=== PATIENT | female | born 1985 | race Caucasian/White ===

== ENCOUNTER 2019-09-05 00:50 | Inpatient (IN) | payer OTHER, SELFPAY ==
[2019-09-05] VITALS (13 sets, daily range): BP systolic 95–124; BP diastolic 60–80; PULSE 54–84; RESP 16; TEMP 36.4–36.8; O2SAT 99; BMI 27.5
[2019-09-05] MEDS: ONDANSETRON INJ 4 MG/2 ML VIAL IV PUSH (01:37)
[2019-09-05 01:51] LABS: Basophils Percent Auto 0.3 % (0.2-1.2); Eosinophils Absolute Auto 0.1 K/mm3 (0-0.3); Eosinophils Percent Auto 0.5 % (0-4.4); Hematocrit 35.6 % (37.0-47.0); Hemoglobin 11.5 g/dL (12.0-15.0); Immature Granulocyte Absolute 0.07 K/mm3 (0.00-0.031); Immature Granulocyte Percent A 0.6 % (0-0.5); Lymphocytes Absolute Auto 2.92 K/mm3 (0.9-3.2); Lymphocytes Percent Auto 23.3 % (18.3-44.2); Mean Corpuscular HGB Conc 32.3 g/dl (32-36); Mean Corpuscular Hemoglobin 27.4 pg (26-34); Mean Platelet Volume 11.8 fl (7.4-10.4); Monocytes Absolute Auto 0.9 K/mm3 (0.1-0.6); Monocytes Percent Auto 7.1 % (2.6-8.5); Neutrophils Absolute Auto 8.5 K/mm3 (1.3-6.7); Neutrophils Percent Auto 68.2 % (45.5-73.1); Platelet Count Result 267 k/mm3 (150-375); Red Blood Count 4.19 M/mm3 (4.2-5.4); Red Cell Distribution Width 13.2 % (11.5-14.5); White Blood Count 12.5 K/mm3 (4.5-10.0)
[2019-09-05] MEDS: OXYTOCIN 30 UNITS/NS 500 ML 30 UNITS/500 ML BAG 999 UNITS IV CONT (01:57)
--- NOTE | 2019-09-05 02:03 | P.HP_ITS ---
Obstetrics - Admit Note Admission Note: record reviewed. No pertinent additions to the history and/or any subsequent changes in the physical findings that are not consistent with the expected course of the were found.No physical prior to delivery, unknown GBS. Pt has been in halfway and recieving care, before and a fter has been seen at [facility]. Pt denies any medications, surgeries, prior at time of admission arrrived 6 cm intact, upon arrival sve 9/100/-2 AROM clear fluid, odorless Additions to the history and/or subsequent changes in the physical findings follow. None.
--- NOTE | 2019-09-05 02:05 | P.PCNOB_ITS ---
OB - Delivery Note Procedure Delivery date: 09/05/19 Procedure: vaginal delivery Intrapartal events: Ineffective Pushing Delivery augmentation: rupture of membranes Delivery monitor: external FHT and external uterine Route of delivery: Laceration description: Labial (right no repair) Specimen: Yes Estimated blood loss (mL): 55 Anesthesia type: None Disposition: other () [place] Baby Date of : 09/05/19 Time of : 01:52 Weeks of gestation at delivery: 39 gender: Female Weight (pounds): 7 Weight (ounces): 1 presentation: vertex position: Left Occiput Anterior Placenta delivery description: Spontaneous cord vessel description: 3 Vessels and Clamped/Cut score one minute: 9 score five minutes: 9 Narrative: mother and baby in stable condition
[2019-09-05] MEDS: OXYTOCIN 30 UNITS/NS 500 ML 30 UNITS/500 ML BAG 125 UNITS IV CONT (02:29)
[2019-09-05 02:43] LABS: HIV 1/2 Ab P24 Ag Result Negative (Negative)
[2019-09-05] MEDS: IBUPROFEN 600 MG TABLET PO ×3 (02:43→20:00)
--- NOTE | 2019-09-05 03:09 | LDADM ---
This patient, Cathy Gordon, was admitted to Labor/Delivery/Recovery 105 on 09/05/19 at 00:50. Plans for labor, pain management and were discussed with patient. Patient/family oriented to hospital policies and general routines including ID bracelet, bed and alarms, visiting hours, pain management, procedures, bathroom and other care routines, personal items, smoking policy, room service/diet and guest tray routines, security routines, and visiting hours. Patient/Family are encouraged to report perceived risks to care and to ask questions if they do not understand what they are told or what they should do. See OBIX for further documentation.
[2019-09-05] MEDS: WITCH HAZEL 40 PADS 1 PAD TOPICAL (03:29)
[2019-09-05] MEDS: BENZOCAINE 20% AER SPR (*SP) 56 GM CAN 1 SPRAY TOPICAL (03:29)
--- NOTE | 2019-09-05 03:45 | PC.NURSE ---
tee moran. cnm stated that cnkj was unable to order pt buprenorphine and dr garcia would have to order medication in am
[2019-09-05 08:19] LABS: HIV 1/2 Ab P24 Ag Result Negative (Negative)
--- NOTE | 2019-09-05 09:56 | PC.NURSE ---
Spoke with Trina in C. Coordination regarding pt's desire to give baby up for adoption. Gave Trina report of pt's hx.
--- NOTE | 2019-09-05 10:11 | PC.NURSE ---
After talking with pt. regarding her dosage of subetex she states she takes 4 mg BID of sublingual pills. Informed pt that our in-house pharmacy does not carry that particular medication (per conversation with pharmacist this AM). I asked pt if she can bring in her home supply of medication. She states she needs to call her regular OB for a refill and then she will check to see if a family member can bring it in.
[2019-09-05 11:25] LABS: Rapid Plasma Reagin Non-Reactive (NonReactive)
--- NOTE | 2019-09-05 16:37 | PCCCNOTE ---
Care Coordination. Pt. referred to for history of drug use, no custody of older 2 children, and wanting adoption of this infant. Spoke with pt. via phone. She reports her father has custody of her older children. She is currently living with [facility], but they are not together and living situation likely temporary as she just got out of [facility]. She was going through drug court and offered a plea to go to [facility] for 90 days and then be on parole. Pt. reports she was in [facility] June and July. She denies meth use for awhile as this is her drug of choice, but admits to marijuana use. RN reports pt. had limited care, but records show a positive ampetamine in Apr 2019. I provided adoption agency options. She wanted to work with [facility]. I spoke with Korina Olsen at [place] ([phone]). She is working with pt. and will talk tonight about consents if pt. ready to move forward. Pt. will also need to sign hospital release of infant form before discharge as well. Korina aware if all goes as planned, infant should be ready for discharge Monday. Spoke with Aliza Steele at [facility] Hotline regarding pt. and she took situation as a report (Intake ID#[id number]). Spoke with Jackeline Mills at [facility] [place] office ([phone] cell or [phone] office) and he reports [facility] will allow adoption if pt. proceeds with it, but if pt. wants to take home then [facility] will NOT allow this and infant will be taken into protective care. Awaiting mother's decision. RNMegan, aware of above. Will follow.
--- NOTE | 2019-09-05 18:05 | PC.NURSE ---
Informed pt this AM that I need to collect a urine specimen to call me when she urinates in the hat on the toilet. This AM at approx. 1000 pt states she urinated but her gown dropped into the urine hat and she dumped the urine. At 1700, checked the pt's toilet for urine since she has not called for a specimen check and I found the urine hat in the trash can. Thus, Urine specimen not collected.
[2019-09-06 05:43] LABS: Hematocrit 28.5 % (37.0-47.0)
--- NOTE | 2019-09-06 07:33 | PM.OBPNVD ---
OB - PN: Subj Subjective Date/time seen: 09/06/19 07:33 OB - PN: Obj Data Labs CBC & Chem 7: 09/06/19 05:36 Labs: Laboratory Results - last 24 hr 09/05/19 09/05/19 09/05/19 01:14 01:14 07:13 Hgb Hct RPR Non-reactive HIV 1&2 Ab/P24 Ag 4thGn Negative Antigen Identification Cancelled 09/06/19 05:36 Hgb 9.0 L Hct 28.5 L RPR HIV 1&2 Ab/P24 Ag 4thGn Antigen Identification OB - PN A/P Plan day: 1 Plan: routine care Comments: hx of drug use, recent incarceration on droplet precaution, plans on adoption, DCFS involved Time Spent With Patient Time: Total time spent is greater than 50% in coordination of care (as documented) at patient's floor/unit and/or counseling patient: Review of Systems Review of Systems: All systems reviewed & are unremarkable except as noted in HPI and below Constitutional: Constitutional: Reports as per HPI Exam Const: General: comfortable Resp: Effort & Inspection: normal respiratory effort
[2019-09-06 08:15] VITALS: BP 115/78; PULSE 60; RESP 18; TEMP 37; O2SAT 99
[2019-09-06] MEDS: KETOROLAC 10 MG TABLET PO ×3 (08:23→22:06)
[2019-09-06] MEDS: POLYSACCHARIDE IRON COMPLEX 150 MG CAPSULE PO ×2 (08:23→16:06)
[2019-09-06] MEDS: DOCUSATE SODIUM 100 MG CAPSULE PO ×2 (08:23→16:06)
--- NOTE | 2019-09-06 10:06 | PCCCNOTE ---
Addendum entered by VANDA Mitchell 09/06/19 10:11: Korina at [facility] is aware as well. Original Note: SW Note. Spoke with pt. by phone this morning. She reports that she is no longer interested in adoption and she wants to keep her baby. Informed her that [facility] plans to take protective custody of baby. Pt. reports that she understands and directed me to tell DCFS of her change in plan. Spoke with Geo Mills at [facility]. He is aware and reports that they will take protective custody. He is aware that baby will likely be ready for discharge tomorrow. He is working on placement and will call when arrangements are made. MARCIE Guzman updated.
--- NOTE | 2019-09-06 10:35 | PC.NURSE ---
Addendum entered by Megan Dover RN 09/06/19 10:37: This communication occurred at approx. 0900 via face to face interaction. Original Note: Informed Ghada Lemus CNM of pt's refusal/aversion to provide a urine specimen, also informed her of supervisor dry paste not ordering a meconium drug screen or UDS on baby.
[2019-09-06 13:23] LABS: SARS-CoV-2 RNA PCR Negative
--- NOTE | 2019-09-06 14:40 | PC.NURSE ---
Pt's covid test is negative. Droplet isolation d/c'd and pt informed.
--- NOTE | 2019-09-06 16:15 | PCCCNOTE ---
SW Note. Received call from Geo Mills at [facility]. He asked if baby could be held at hospital until Monday in order for them to arrange placement. Geo informed that it is anticipated that baby will be ready for discharge on Monday and should be placed on Monday. Geo reports that wagon washerorder desk caller will need to be contacted through the hotline on day of discharge and they will arrange placement. Encouraged Geo to arrange placement today in anticipation of discharge tomorrow, but he reports that it is not possible for him to have placement arranged by end of business today.
[2019-09-06 18:57] VITALS: BP 122/79; PULSE 55; RESP 16; TEMP 36.9; O2SAT 100
[2019-09-07] MEDS: KETOROLAC 10 MG TABLET PO ×2 (05:17→11:14)
[2019-09-07] MEDS: DOCUSATE SODIUM 100 MG CAPSULE PO (09:57)
[2019-09-07 09:58] VITALS: BP 109/61; PULSE 58; RESP 16; TEMP 36.6; O2SAT 100
[2019-09-07] MEDS: POLYSACCHARIDE IRON COMPLEX 150 MG CAPSULE PO (09:58)
--- NOTE | 2019-09-07 10:14 | PM.OBPNVD ---
OB - PN: Subj Subjective Date/time seen: 09/07/19 10:14 Patient comments: no complaints, pain well controlled and other (Lochia similar to menses) [place] baby status: doing well OB - PN: Obj Data Labs CBC & Chem 7: 09/06/19 05:36 Labs: Laboratory Results - last 24 hr 09/05/19 19:43 SARS-CoV-2 RNA (RT-PCR) Negative OB - PN A/P Plan day: 2 (s/p vaginal delivery, doing well) Plan: routine care, discharge home and other (Follow up in office in 4 weeks) Time Spent With Patient Time: Total time spent is greater than 50% in coordination of care (as documented) at patient's floor/unit and/or counseling patient: Exam Const: General: no acute distress GI: Inspection: other (Fundus firm and nontender below umbilicus) GI Palp: Yes Soft to palpation and No Tenderness to palpation present (GI) Extrem: General: no edema
[2019-09-07] MEDS: medroxyPROGESTERone ACETATE IM 150 MG/ML SYR IM (11:15)
--- NOTE | 2019-09-07 14:34 | PC.NURSE ---
1200 Daphnie Bowman, Foster Care Phlebotomist Associate here. 1220 Neeraj Trujillo DCFS Phlebotomist Associate here. 1222 DCFS took custody of infant.
--- NOTE | 2019-09-07 16:16 | PCCCNOTE ---
Care Coordination. Pt. and baby to discharge today. Spoke with [facility] Hotline Linda (Intake ID#[id number]). Spoke with on-call DCFS worker Neeraj Caldwell and he reports they will be picking up baby around 12p. He will have rn case management with him. RN, Xochitl, renita.
--- NOTE | 2019-09-13 07:48 | PM.OBDSVD ---
DS: Diagnosis Admitting Diagnosis Admitting Diagnosis: Encounter for supervision of normal , unspecified, third trimester OB - DS: Summary OB Procedures : None OB Procedures Intrapartum: Spontaneous Vag Delivery OB Procedures: : None Time Spent with Patient Time attestation: Total time spent providing and/or coordinating discharge services: DS: Data Data Completed and Pending Completed studies during hospitalization: Pending at discharge 09/05/19 02:29 Surgical [PTH] Routine Discharge Plan Discharge Consulting providers: Eufemia Lemus Discharging Clinician: Lizeth Manzanares Patient Disposition: Home, Self-Care Activity: as tolerated Diet: as tolerated Discharge Instructions: Education: Mom and Baby Guide Given to: Patient Follow-Up: Call your delivering provider's office for an appointment to be seen in: 4 Weeks Mom should come to the [facility] for the follow-up appointment. Appointment Date/Time: September 10, 2019 at 11:00 am What to expect at your follow-up visit: Blood Pressure Check Physical Assessment Call [phone] if you are unable to keep your appointment time. BREAST CARE: 1. Wear a snug supportive bra. 2. For engorgement discomfort: Bottle Feeding: A. May apply ice packs EPISIOTOMY/PERINEAL CARE: 1. Until bleeding stops, use your deepika bottle after urinating 2. Change your pad frequently throughout the day 3. You may take sitz baths several times a day (fill your bathtub with warm water and soak for 20 minutes.) Do NOT bathe in the water 4. No tub baths until seen by your physician - You may shower ACTIVITY: 1. Rest as much as possible. 2. Do not exercise or lift anything heavier than your baby (such as laundry or other children.) 3. Avoid stairs or driving as much as possible. 4. Do not put anything into the vagina. No douching, tampons, or sexual activity until seen by physician. NOTIFY PHYSICIAN IF YOU HAVE ANY QUESTIONS OR IF ANY OF THE FOLLOWING SYMPTOMS OCCUR: 1. If your episiotomy or incision becomes red, swollen, or more painful than what you have experienced in the hospital. 2. If your vaginal bleeding becomes foul smelling. 3. If your vaginal bleeding becomes more heavy than a period or if your bleeding changes from pink to bright red. However, you may pass an occasional walnut-sized clot once or twice for the first week . 4. If you experience a sharp, shooting pain in you calves. 5. If you discover a hard, reddened area on your breast or if you experience flu-like symptoms. DIET: 1. Eat regular, well-balanced meals. 2. Drink plenty of fluids daily. If , drink to thirst. Follow-up/Referrals: Eufemia Lemus CNM [Certified Nurse Marine Fuel Dock Attendant] - Discharge Medications: New ibuprofen 600 mg Tablet 600 mg PO Q6H PRN (Reason: Cramping) Qty: 60 RF: 0 Continued prednisone 50 mg tablet RF: 0 buprenorphine HCl 2 mg Tablet, Sublingual 2 mg SUBLINGUAL DAILY RF: 0 PNV cmb#[id number]-ferrous fumarate-FA [] 28 mg iron- 800 mcg Tablet 1 tablet PO DAILY RF: 0 Discontinued acetaminophen 500 mg tablet RF: 0 diphenhydramine HCl [Banophen] 25 mg capsule RF: 0 Date of admission: 09/05/19 00:50 Primary Care Provider: UNKNOWN,DOCTOR Admitting Provider: Paultete Peters Discharge Date/Time: 09/07/19 12:22 Attending physician on admission: Lizeth Manzanares
== END 2019-09-07 12:22 | disposition home or self-care (01) | DRG 560 ==
LOC: ANHLDR 03:12 → ANHOB2 09-06 09:34 → ANHLDR 09-10 08:31 → ANHOB2 09-10 08:31
PROVIDERS: Advanced Practice Midwife; Admitting Provider Obstetrics & Gynecology; Visit Provider Obstetrics & Gynecology
DX: O70.0 First degree perineal laceration during delivery (principal); Z3A.39 39 weeks gestation of pregnancy; Z37.0 Single live birth; Z23 Encounter for immunization; Z20.828 Contact with and (suspected) exposure to other viral communicable diseases
CPT/HCPCS: 36415; 85014; 85018; 85025; 86592; 86703; 86850; 86880; 86900; 86901; 86902; 87635; 88307; A9270; G0432; J1050; J2405; J2590; U0003

== ENCOUNTER 2021-04-18 15:54 | Emergency (ER) | payer OTHER, SELFPAY ==
--- NOTE | ~2021-04-18 | CT_ITS ---
EXAMINATION: CT abdomen pelvis w con DATE: 04/18/2021 18:36 INDICATION: Suprapubic pain. TECHNIQUE: Computed tomography (CT) of the abdomen and pelvis was performed with 100 mL Omnipaque 350 intravenous contrast. Automated exposure control and iterative reconstruction technique were employe d. The dose-length product was 191.53 mGy-cm. COMPARISON: None. FINDINGS: The visualized portions of the lung bases are clear without pneumonia or pleural effusion. The heart size is normal. No pericardial effusion. The liver, gallbladder, spleen, pancreas, and adre nal glands are normal. There is cortical thinning of the kidneys. There are no dilated loops of bowel . The appendix is normal. There are no pathologically enlarged lymph nodes. There is physiologic flui d in the pelvis. Left ovarian vein and the periuterine veins are enlarged, consistent with pelvic javy ous insufficiency. There is severe degenerative disc disease at L5-S1. IMPRESSION: 1. Pelvic venous insufficiency. Reviewed, dictated and finalized at location A. UNITY SERVICE REPRESENTATIVE
[2021-04-18 16:02] VITALS: BP 106/74; PULSE 109; RESP 18; TEMP 36.6; O2SAT 100
[2021-04-18] MEDS: KETOROLAC 30 MG/ML VIAL (*BKC) IV PUSH (16:37)
[2021-04-18 16:38] LABS: Basophils Percent Auto 0.5 % (0.2-1.2); Eosinophils Absolute Auto 0.1 K/mm3 (0-0.3); Eosinophils Percent Auto 1.1 % (0-4.4); Hematocrit 39.8 % (37.0-47.0); Hemoglobin 12.9 g/dL (12.0-15.0); Immature Granulocyte Absolute 0.03 K/mm3 (0.00-0.031); Immature Granulocyte Percent A 0.4 % (0-0.5); Lymphocytes Percent Auto 21.2 % (18.3-44.2); Mean Corpuscular HGB Conc 32.4 g/dl (32-36); Mean Corpuscular Hemoglobin 28.4 pg (26-34); Mean Corpuscular Volume 87.5 fl (80-100); Mean Platelet Volume 9.8 fl (7.4-10.4); Monocytes Absolute Auto 0.6 K/mm3 (0.1-0.6); Monocytes Percent Auto 7.5 % (2.6-8.5); Neutrophils Absolute Auto 5.6 K/mm3 (1.3-6.7); Neutrophils Percent Auto 69.3 % (45.5-73.1); Platelet Count Result 262 k/mm3 (150-375); Red Blood Count 4.55 M/mm3 (4.2-5.4); Red Cell Distribution Width 13.6 % (11.5-14.5)
[2021-04-18 16:49] LABS: Alanine Aminotransferase 93 U/L (4-35); Albumin Level 4.2 g/dL (3.5-5.1); Alkaline Phosphatase 86 U/L (38-126); Anion Gap 8 mmol/L (8-16); Aspartate Amino Transferase 57 U/L (14-36); Bilirubin,Total 0.4 mg/dL (0.2-1.3); Blood Urea Nitrogen 12 mg/dL (7-17); Calcium 9.1 mg/dL (8.4-10.2); Carbon Dioxide 30 mmol/L (22-30); Chloride 98 mmol/L (98-107); Estimated CRCL calculation 71 ml/min; Estimated Glomerular Filt Rate > 60; Glucose 111 mg/dL (65-110); Lipase 39 U/L (23-300); Potassium 3.9 mmol/L (3.4-5.0); Sodium 136 mmol/L (137-145)
[2021-04-18 16:50] LABS: Add Urine Microscopic? YES; Appearance Urine Cloudy (Clear); Bilirubin Urine Negative (Negative); Blood Urine Negative (Negative); Color Urine Yellow (Yellow); Glucose Urine UA Negative (Negative); Ketones Urine Negative (Negative); Leukocyte Esterase Ur 2+ LEU/UL (Negative); Mucus Urine Rare /lpf; Nitrate Urine Negative (Negative); Protein Urine Negative (Negative); Specific Grav Ur 1.017 (1.001-1.035); Squamous Epithelial Cell Urine Many /hpf (Few); WBC Urine 31-50 /hpf
[2021-04-18 17:58] VITALS: BP 103/76; PULSE 88; RESP 15; O2SAT 100
--- NOTE | 2021-04-18 18:25 | ED.ABDPAIN ---
HPI - Abdominal Pain General Chief Complaint: Abdominal Pain Stated Complaint: abd pain Time Seen by Provider: 04/18/21 16:19 Source: patient Mode of arrival: ambulatory Limitations: no limitations History of Present Illness HPI narrative: 35-year-old with a history of ovarian cyst here with complaints of suprapubic pain since this morning. She denies any fever or chills. No history of nausea or vomiting. She denies any vaginal bleeding or discharge. MD elicited complaint: abdominal pain Pertinent past history: other (Ovarian cyst) Onset (ago): day(s) (1) Pain Consistency: constant Quality: aching Radiation: none Migration to: no migration Relieving factors: nothing Related Data Allergies Allergy/AdvReac Type Severity Reaction Status Date / Time No Known Allergies Allergy Verified 04/18/21 16:05 Review of Systems Review of Systems: All systems reviewed & are unremarkable except as noted in HPI and below Constitutional: Constitutional: Reports no additional constitutional complaints Eyes: Eyes: Reports no additional eye complaints ENT: Reports system reviewed and no additional complaints, except as documented Cardiovascular: Cardiovascular: Reports no additional cardiovascular complaints Respiratory: Respiratory: Reports no additional respiratory complaints Gastrointestinal: Gastrointestinal: Reports as per HPI Musculoskeletal: Musculoskeletal: Reports no additional musculoskeletal complaints [facility] Social History Social History (Updated 09/05/19 @ 04:14 by An Ha RN) Smoking packs per day: 0.5 Smoking cigarettes per day: 10.0 Years smoked: 17 Smoking pack-years: 8.50 Smoking status: Current every day smoker Tobacco type: cigarettes Second hand tobacco smoke exposure: Yes Alcohol intake: never Substance use: former Substance use type: marijuana and methamphetamine Last use: december of 2018 Gender identity (if verbalized by the patient): Female Spiritual care concerns: No Agree to blood products: Yes Exam Narrative: GENERAL: Well-appearing, well-nourished, and in no acute distress. HEAD: Normocephalic, atraumatic. EYES: PERRLA and EOMI. ENT: Nares clear, no rhinorrhea or epistaxis. Mucous membranes moist. NECK: Supple. CHEST: Clear to auscultation. No respiratory distress. HEART: Regular rate and rhythm. No murmur heard. Normal peripheral pulses. ABDOMEN: Soft, tender in the supra pubic area, nondistended, normal active bowel sounds. EXTREMITIES: Normal range of motion. No edema. SKIN: Warm, dry, no rash. NEURO: No focal deficits. Alert and oriented x3. PSYCH: Normal mood and affect. Course Course Emergency Course: Inform patient about her lab work. Cause of pain most likely could be UTI with elevated WBC count in the urine. Her pain is much improved with Toradol. Informed patient about her CT findings. She does feel comfortable going home Vital Signs Vital signs: Vital Signs Temperature 36.6 C 04/18/21 16:02 Pulse Rate 109 H 04/18/21 16:02 Respiratory Rate 18 04/18/21 16:02 Blood Pressure 106/74 04/18/21 16:02 Pulse Oximetry 100 04/18/21 16:02 Temperature 36.6 C 04/18/21 16:02 Pulse Rate 88 04/18/21 17:58 Respiratory Rate 15 04/18/21 17:58 Blood Pressure 103/76 04/18/21 17:58 Pulse Oximetry 100 04/18/21 17:58 MDM - Abdominal Pain Lab Data Result diagrams: 04/18/21 16:27 04/18/21 16:27 Labs: Lab Results 04/18/21 04/18/21 04/18/21 Range/Units 16:27 16:27 16:27 WBC 8.0 (4.5-10.0) K/mm3 RBC 4.55 (4.2-5.4) M/mm3 Hgb 12.9 D (12.0-15.0) g/dL Hct 39.8 (37.0-47.0) % MCV 87.5 (80-100) fl MCH 28.4 (26-34) pg MCHC 32.4 (32-36) g/dl RDW 13.6 (11.5-14.5) % Plt Count 262 (150-375) k/mm3 MPV 9.8 (7.4-10.4) fl Immature Gran % (Auto) 0.4 (0-0.5) % Neut % (Auto) 69.3 (45.5-73.1) % Lymph % (Auto) 21.2 (18.3-44.2) % M
[2021-04-18 19:15] VITALS: BP 106/68; PULSE 80; RESP 17; O2SAT 100
== END 2021-04-18 19:18 | disposition home or self-care (01) ==
PROVIDERS: Emergency Medicine; Emergency Provider Family Medicine
DX: R10.9 Unspecified abdominal pain (principal); F17.210 Nicotine dependence, cigarettes, uncomplicated
CPT/HCPCS: 36415; 74177; 80053; 81001; 81025; 83690; 85025; 87077; 87086; 87088; 96374; 99284; J1885; Q9967

== ENCOUNTER 2021-06-21 11:36 | Emergency (ER) | payer OTHER, SELFPAY ==
[2021-06-21 11:57] VITALS: BP 133/78; PULSE 76; RESP 17; TEMP 36.2; O2SAT 97
[2021-06-21 11:59] VITALS: BP 133/78; PULSE 76; RESP 17; TEMP 36.4; O2SAT 97
--- NOTE | 2021-06-21 12:09 | ED.GENADULT ---
HPI - General Adult General Chief complaint: Unspecified Stated complaint: needs a fit for confiment evaluation Time Seen by Provider: 06/21/21 11:58 Source: patient Mode of arrival: ambulatory Limitations: no limitations History of Present Illness HPI narrative: Patient is a 36-year-old female here for medical clearance to go to intermediate. Patient has no complaints at this time. Patient denies any headache, dizziness, chest pain, shortness of breath, cough, congestion, abdominal pain, nausea, vomiting, diarrhea, fever or chills. Related Data Allergies Allergy/AdvReac Type Severity Reaction Status Date / Time No Known Allergies Allergy Verified 06/21/21 11:57 Review of Systems Review of Systems: Per HPI All systems reviewed & are unremarkable except as noted in HPI and below Constitutional: Constitutional: Denies body ache(s), Denies chills, Denies excessive sweating, Denies fatigue, Denies fever(s), Denies headache(s), Denies lethargy, Denies malaise, Denies weakness and Denies weight loss Eyes: Eyes: Denies blurry vision, Denies change in vision and Denies loss of vision ENT: Denies dizziness, Denies ear discharge, Denies headache(s), Denies lip swelling, Denies epistaxis, Denies nasal congestion, Denies neck pain, Denies throat swelling and Denies tongue swelling Cardiovascular: Cardiovascular: Denies chest pain, Denies chest pain at rest, Denies chest pain with activity, Denies diaphoresis, Denies rapid heart rate, Denies edema, Denies irregular heart rhythm, Denies lightheadedness, Denies palpitations, Denies dyspnea and Denies dyspnea on exertion Respiratory: Respiratory: Denies chest congestion, Denies cough, Denies hemoptysis, Denies dyspnea and Denies dyspnea on exertion Gastrointestinal: Gastrointestinal: Denies abdominal pain, Denies melena, Denies hematochezia, Denies diarrhea, Denies nausea, Denies vomiting and Denies hematemesis Musculoskeletal: Musculoskeletal: Denies abnormal gait, Denies deformity, Denies joint swelling, Denies limited range of motion, Denies neck pain and Denies numbness Neurologic: Denies Abnormal speech present, Denies abnormal gait, Denies confusion, Denies dizziness, Denies headache(s), Denies focal weakness, Denies loss of vision, Denies numbness, Denies Other visual disturbances, Denies Sensory deficit (Neuro) and Denies weakness Psychiatric: Psychiatric: Denies confusion, Denies depression, Denies auditory hallucinations, Denies homicidal ideation and Denies suicidal ideation Endocrine: Endocrine: Denies cold intolerance, Denies excessive sweating, Denies fatigue, Denies heat intolerance and Denies palpitations Hematologic/Lymphatic: Hematologic/Lymphatic: Denies easy bleeding and Denies easy bruising Allergic/Immunologic: Allergic/Immunologic: Denies lip swelling, Denies throat swelling and Denies tongue swelling [facility] Social History Social History Smoking packs per day: 0.5 Smoking cigarettes per day: 10.0 Years smoked: 17 Smoking pack-years: 8.50 Smoking status: Current every day smoker Tobacco type: cigarettes Second hand tobacco smoke exposure: Yes Alcohol intake: never Substance use: former Substance use type: marijuana and methamphetamine Last use: december of 2018 Gender identity (if verbalized by the patient): Female Spiritual care concerns: No Agree to blood products: Yes Comments Past medical history: None Family history: Unknown Exam Const: General: cooperative, healthy appearing, comfortable, no acute distress, well developed, alert and awake; No confusion Orientation/consciousness: oriented to person, oriented to place, oriented to time, patient oriented x3 and No confusion Limitations: no limitations HENMT: Head: normal to inspection, normocephalic and atraumatic Ears: hearing grossly normal bilaterally, TM normal on the right and TM normal on the left General nose exam: Normal externa
== END 2021-06-21 12:20 ==
PROVIDERS: Emergency Provider Emergency Medicine
DX: Z02.89 Encounter for other administrative examinations (principal); F17.210 Nicotine dependence, cigarettes, uncomplicated
CPT/HCPCS: 99281

== ENCOUNTER 2022-07-12 21:41 | Emergency (ER) | payer OTHER, SELFPAY ==
[2022-07-12 21:46] VITALS: BP 129/62; PULSE 105; RESP 17; TEMP 37.4; O2SAT 99
--- NOTE | 2022-07-12 22:44 | PC.NURSE ---
Patient called [employer] to transfer her to another Emergency Department as she stated she did not want to wait to be seen here any longer.
== END 2022-07-12 22:44 | disposition left against medical advice (07) ==
LOC: ANHED 22:50
DX: R11.2 Nausea with vomiting, unspecified (principal)
CPT/HCPCS: 99199